=== PATIENT | female | born 1940 | race African-American/Black ===

== ENCOUNTER 2017-02-13 10:55 | Day surgery (SDC) | payer MEDICARE, OTHER ==
[2017-02-08 10:07] LABS: HEMATOCRIT 40.2 % (36.0-48.0); HEMOGLOBIN 13.1 g/dL (12.0-16.0)
[2017-02-08 10:28] LABS: BUN (BLOOD UREA NITROGEN) 16 MG/DL (6-23); CALCIUM, SERUM 9.6 MG/DL (8.5-10.4); CHLORIDE, SERUM 108 MMOL/L (96-112); CO2 (CARBON DIOXIDE) 30 MMOL/L (24-34); CREATININE 1.08 MG/DL (0.55-1.02); GFR AFRICAN AMERICAN 58 ML/MIN (>=60); GFR NON AFRICAN AMERICAN 50 ML/MIN (>=60); GLUCOSE, SERUM 85 MG/DL (60-99); POTASSIUM, SERUM 4.1 MMOL/L (3.5-5.3); SODIUM, SERUM 140 MMOL/L (135-148)
--- NOTE | ~2017-02-13 | OP ---
Record Of Operation [facility] [address] [place]. [address] NAME: DUNG WILLIAM : 42 STATUS : [facility]#: [id number] AGE: 76 ADM/REG DATE : 02/13/17 MR#: [id number] REPORT SERV DATE: 02/13/17 DICTATED BY: DONOVAN PRITCHARD DATE: 02/13/17 REPORT STATUS : Draft TRANSCRIBED BY: MODL DATE: 02/13/17 DATE OF PROCEDURE: 02/13/2017 PREOPERATIVE DIAGNOSIS: Right neck mass, consistent with lipoma, level 5. POSTOPERATIVE DIAGNOSIS: Right neck mass, consistent with lipoma, level 5. PROCEDURE: Excision of lipoma from right posterior triangle. INDICATIONS: Dung William is a 76-year-old female with a long history of a right posterior neck mass, which is gradually increasing in size and is somewhat uncomfortable right now due to its bulk. I counseled her about the risks, benefits, and alternatives of this procedure. The risks include, but are not limited to pain, bleeding, infection, and scarring. I quoted her a 1% risk for infection after this procedure and a 2% risk for recurrence. She voiced an understanding of those risks and signed a consent form. DESCRIPTION OF PROCEDURE: Ms William was brought to the operating room and positioned on the table in the supine manner. General endotracheal anesthesia was induced. The patient was prepped and draped in the usual fashion. We raised the right shoulder up off the table with a pillow and then used the largest head of sales and marketing and extended the head somewhat to the left, exposing the posterior triangle on the right side. A moderate amount of hair was shaved for this procedure. The patient was prepped and draped in the usual fashion. The skin incision was marked out with the marking pen within relaxed skin tension lines. This was incised sharply with a 15 blade. A combination of blunt and sharp dissection suffice to free up the superficial layers of dermis and subcutaneous fat. Unipolar electrocautery was utilized for hemostasis. A combination of blunt and sharp dissection were used to free up the mass, consistent with the lipoma, from the surrounding tissues. This was about 30 mm in greatest extent and somewhat multiloculated. Following this, hemostasis was obtained with the unipolar electrocautery, preserving superficial nerves and the 11th cranial nerve as well. 4-0 Vicryl undyed was utilized to close the skin in an interrupted suture pattern and then we used a 5-0 Prolene down on the skin in a running locking suture pattern to close the most superficial layer. Half-inch Steri-Strips were placed and the patient was returned to anesthesia control after removing the drapes and cleaning her up. She was extubated in the operating room and moved to the recovery room in good condition. FINDINGS: 1. Estimated blood loss 5 mL. 2. Total fluids given 450 mL of Ringer's lactate. 3. The excised mass appeared to be consistent with a lipoma. 4. Permanent pathology only was requested. EMBER/ISHMAEL Donovan Laird Record Of Operation [address] [address] NAME: DUNG WILLIAM ANN : 42 STATUS : [facility] PAT#: [id number] AGE: 76 ADM/REG DATE : 02/13/17 MR#: [id number] REPORT SERV DATE: 02/13/17 DICTATED BY: DONOVAN PRITCHARD DATE: 02/13/17 REPORT STATUS : Draft TRANSCRIBED BY: ISHMAEL DATE: 02/13/17 Vicki Pritchard / [id number] CC: Vicki Beauchamp M.D.
[~2017-02-13 10:55] MED LIST: ASAB PO; CILOSTAZOL100 MG PO; CITRACAL PO; CLARIT10 PO; COREG25 PO; CRESTOR5 MG PO; FLONASE NAS; HYDROCHLOROT12.5 MG PO; ISOCHRON40 MG PO; KAPIDEX60 MG PO; NITROSTAT0.4 MG SL; NORV10 PO; PLAVIX PO; SINGULAIR1 PO; VITAMIN D2000 UNIT PO; ZANTAC150 MG PO
== END 2017-02-13 15:47 | disposition home or self-care (01) ==
LOC: SDC 10:55
PROVIDERS: Otolaryngology
PROC: 0WB60ZZ Excision of Neck, Open Approach (ICD-10-PCS; principal; 2017-02-13 12:45)
DX: D17.0 Benign lipomatous neoplasm of skin and subcutaneous tissue of head, face and neck (principal); I25.10 Atherosclerotic heart disease of native coronary artery without angina pectoris; I12.9 Hypertensive chronic kidney disease with stage 1 through stage 4 chronic kidney disease, or unspecified chronic kidney disease; N18.3 Chronic kidney disease, stage 3 (moderate); E78.00 Pure hypercholesterolemia, unspecified; K21.9 Gastro-esophageal reflux disease without esophagitis; Z90.710 Acquired absence of both cervix and uterus; Z95.5 Presence of coronary angioplasty implant and graft; Z95.1 Presence of aortocoronary bypass graft; Z87.891 Personal history of nicotine dependence; Z88.8 Allergy status to other drugs, medicaments and biological substances; Z79.51 Long term (current) use of inhaled steroids; Z79.82 Long term (current) use of aspirin; Z79.02 Long term (current) use of antithrombotics/antiplatelets; Z79.899 Other long term (current) drug therapy
CPT/HCPCS: 80048; 85014; 85018; 88304; 93005; A9270-GY; J0690; J2405; J3010